=== PATIENT | male | born 1975 ===

== ENCOUNTER 2018-12-15 07:59 | Outpatient (CLI) | payer OTHER | END 2018-12-15 08:09 | disposition home or self-care (01) | LOC: SONOGRAMA 07:59 → MAMO-SONO 08:15 | DX: I86.1 Scrotal varices (principal) ==

== ENCOUNTER 2025-03-14 05:50 | Day surgery (SDC) | payer OTHER ==
[2025-03-14] MEDS ORDERED: fentaNYL CITRATE 50 MCG/ML AMPUL IV PUSH ONE (08:30)
[2025-03-14] MEDS ORDERED: DIPHENHYDRAMINE HCL 50 MG/ML VIAL 1ML IV ONE (08:30)
[2025-03-14] MEDS ORDERED: MIDAZOLAM HCL 2 MG/2 ML VIAL IV ONE (08:30)
== END 2025-03-14 10:00 | disposition home or self-care (01) ==
LOC: AMB-ENDOS 05:50
PROVIDERS: ATTEND Colon & Rectal Surgery
DX: K62.1 Rectal polyp (principal); K63.5 Polyp of colon; Z88.0 Allergy status to penicillin